=== PATIENT | female | born 1990 | race Caucasian/White ===

== ENCOUNTER 2019-04-29 17:59 | Emergency (ER) | payer SELFPAY ==
[~2019-04-29] VITALS: Ht 152.4 cm; Wt 47.0 kg
--- NOTE | 2019-04-29 18:28 | PHYS DOC ---
Past History Past Medical History: No Pertinent History Adult General Chief Complaint Chief Complaint: MECHANICAL FALL HPI HPI Patient is a 28-year-old female presents to the emergency department for evaluation of neck pain. She states she was laying on her back on the floor, and getting her daughter arrived on her bent knees. She states her daughter started to fall forward, over the patient's head, and the patient states that she tried to rotate her body so that the child would not fall and harm herself, and in doing so, she banged her head and neck, which were flexed forward while she was lying supine, onto the floor, and is having some pain to movement of her neck. The pain is more diffuse and left paraspinal than midline. She denies any numbness, weakness, headache, or loss of consciousness. There are no alleviating or exacerbating factors to her symptoms otherwise. Review of Systems Review of Systems Constitutional: Denies fever or chills [] Eyes: Denies change in visual acuity, redness, or eye pain [] : Denies dysuria or hematuria . Denies . Menstrual cycle is due to start in 3 days.[] Musculoskeletal: Denies back pain or joint pain [] Neurologic: Denies headache, focal weakness or sensory changes [] Current Medications Current Medications Current Medications Medications (Trade) Dose Ordered Sig/Isaias Start Time Stop Time Status Last Admin Dose Admin Ibuprofen (Motrin) 600 mg 1X ONCE 04/29/19 18:30 04/29/19 18:31 UNV Physical Exam Physical Exam PHYSICAL EXAM: CONSTITUTIONAL: Well developed, well nourished HEAD: normocephalic, atraumatic EENT: PERRL, EOMI. Conjunctivae normal color, sclerae non-icteric; moist mucous membranes. NECK: There is mild tenderness to palpation diffusely in the cervical spine, mostly in the left paraspinal and trapezius muscles. There is no definite bony tenderness to palpation. Flexion and extension of the cervical spine are somewhat limited by pain, rotation bilaterally is intact to about 80% of full. LUNGS: Lungs CTA, breathing even and unlabored. Normal air movement. HEART: Regular rate and rhythm, no murmur CHEST: No deformity; non-tender ABDOMEN: The abdomen is soft, and non-tender, no masses or bruits. EXTREM: Normal ROM; no deformity, no calf tenderness. Normal pulses palpable in all extremities. There is no pedal edema. SKIN: No rash; no diaphoresis NEURO: Alert; normal speech and cognition; CN's grossly intact; strength grossly intact without focal deficit. BACK: No CVA TTP.There is no bony tenderness to palpation of the thoracic or lumbar spine. EKG EKG [] Radiology/Procedures Radiology/Procedures PROCEDURE: CERVICAL SPINE 2-3V Cervical spine 3 views. HISTORY: Fall, pain 3 views were taken of the cervical spine. There is straightening of the normal cervical lordosis. Disc spaces are normal in height. An acute fracture is not identified. IMPRESSION: 1. No acute fracture noted in the cervical spine.[] Course & Med Decision Making Course & Med Decision Making Pertinent Imaging studies reviewed. (See chart for details) []Patient remains stable. I discussed test results, the need for close follow- up, and return precautions. Dragon Disclaimer Dragon Disclaimer This electronic medical record was generated, in whole or in part, using a voice recognition dictation system. Departure Departure: Impression: Primary Impression: Cervical strain Disposition: HOME, SELF-CARE Condition: STABLE Referrals: PCP,NO (PCP) Patient Instructions: Cervical Sprain Additional Instructions: Ibuprofen 400-600 mg every 6 hours may help improve your symptoms. Applying a heating pad to the affected area may help improve your symptoms. The prescribed medications may cause drowsiness-use caution while taking. Scripts Cyclobenzaprine Hcl (CYCLOBENZAPRINE HCL) 10 Mg Tablet 1 TAB PO TID PRN for PAIN, #20 TAB Prov: JACKI GILMORE MD 04/29/19 JACKI GILMORE MD Apr 29, 2019 18:28
[2019-04-29] MEDS ORDERED: IBUPROFEN 600 MG TABLET. PO ONE (18:30)
[2019-04-29 19:03] VITALS: BP 120/76
--- NOTE | 2019-04-29 19:08 | RAD ---
Cervical spine 3 views. HISTORY: Fall, pain 3 views were taken of the cervical spine. There is straightening of the normal cervical lordosis. Disc spaces are normal in height. An acute fracture is not identified. IMPRESSION: 1. No acute fracture noted in the cervical spine. Electronically signed by: Gadiel Ferris MD (04/29/2019 7:05 PM) [id number]
[2019-04-29] MEDS ORDERED: CYCL-331 PO (19:17)
== END 2019-04-29 19:42 | disposition home or self-care (01) ==
LOC: ER 17:59
DX: S16.1XXA Strain of muscle, fascia and tendon at neck level, initial encounter (principal); X50.9XXA Other and unspecified overexertion or strenuous movements or postures, initial encounter; Y93.89 Activity, other specified; Y92.89 Other specified places as the place of occurrence of the external cause; Y99.8 Other external cause status
CPT/HCPCS: 72040; 99283

== ENCOUNTER 2019-11-17 18:27 | Emergency (ER) | payer SELFPAY ==
[~2019-11-17] VITALS: Ht 152.4 cm; Wt 44.8 kg
[~2019-11-17 18:27] MED LIST: CYCL-331 PO
--- NOTE | 2019-11-17 19:14 | PHYS DOC ---
Past History Past Medical History: No Pertinent History, Bipolar Past Medical History anoxeria Past Surgical History: No Surgical History Alcohol Use: None General Adult EDM: Chief Complaint: ANXIETY/PANIC ATTACK HPI: HPI: Patient is a 29 year old F who presents with anxiety that began about 1 month ago. She describes panic attacks where she feels like her arms and lips are numb and her hand "lock up". She states these have been occurring everyday for the p ast month. Before arrival, she went to urgent care for the a panic attack, the doctor told her she needed to see a rf engineer which caused her anxiety to be even worse and she decided to come here. She complains of burping and a sharp pain in the left side of her chest for the past few months. She denies shortness of breath or diaphoresis with the chest pains. She said that she has been taking tums with little relief. Denies suicidal and homicidal ideation. Review of Systems: Review of Systems: Constitutional: Denies fever or chills Eyes: Denies redness or eye pain HENT: Denies nasal congestion or sore throat Respiratory: Denies cough; reports shortness of breath with anxiety Cardiovascular: Denies palpatations; reports sharp chest pain GI: Denies abdominal pain, nausea, or vomiting : Denies dysuria or hematuria Musculoskeletal: Denies back pain or joint pain Integument: Denies rash or skin lesions Neurologic: Denies headache, focal weakness or sensory changes Complete systems were reviewed and found to be within normal limits, except as documented in this note. Heart Score: HEART Score for Chest Pain: HEART Score for Chest Pain Response (Comments) Value History Slighlty/Non-Suspicious 0 ECG Normal 0 Age < 45 0 Risk Factors No Risk Factors 0 Total 0 Risk Factors: Risk Factors: DM, Current or recent (<one month) smoker, HTN, HLP, family history of CAD, obesity. Risk Scores: Score 0 - 3: 2.5% MACE over next 6 weeks - Discharge Home Score 4 - 6: 20.3% MACE over next 6 weeks - Admit for Clinical Observation Score 7 - 10: 72.7% MACE over next 6 weeks - Early Invasive Strategies Allergies: Allergies: Allergies Coded Allergies Type Severity Reaction Last Updated Verified No Known Allergies Allergy Unknown 04/29/19 Yes Physical Exam: PE: Constitutional: Well developed, well nourished. HENT: Normocephalic, atraumatic Eyes: Conjunctiva normal, no discharge Neck: Normal range of motion, supple Lungs & Thorax: No respiratory distress, equal chest rise and fall, tachycardic on exam. Abdomen: Soft, no tenderness Skin: Warm, dry, no erythema, no rash Back: No tenderness, no CVA tenderness Extremities: No tenderness, no edema Neurologic: Alert and oriented X 3, no focal deficits noted Psychologic: Affect normal, judgment normal Current Patient Data: Vital Signs: Vital Signs Date Time Temp Pulse Resp B/P (MAP) Pulse Ox O2 Delivery O2 Flow Rate FiO2 11/17/19 18:38 99.0 120 16 143/95 (111) 100 EKG: EKG: @19:54 Normal sinus rhythm with HR of [address] elevations. QRS 94 ms. QT 385 ms. QTc 465 ms Radiology/Procedures: Radiology/Procedures: [] Course & Med Decision Making: Course & Med Decision Making Pertinent Labs and Imaging studies reviewed. (See chart for details) [] Dragon Disclaimer: Dragon Disclaimer: This electronic medical record was generated, in whole or in part, using a voice recognition dictation system. Departure Departure: Impression: Primary Impression: Anxiety Additional Impression: Gastritis Qualified Codes: K29.00 - Acute gastritis without bleeding Disposition: HOME/RESIDENCE PRIOR TO ADM Condition: STABLE Referrals: PCP,SURY (PCP) GURWINDER VELAZQUEZ MD Patient Instructions: Anxiety and Panic Attacks, Vutg-[id number], Gastritis, Adult , [id number] Additional Instructions: Please use previously purchased antacid medication. Call the [facility] (see attached flyer) Justification of Admission: Justification of Admission: Justification of Admission Dx: N/A LAINE LOWE DO Nov 17, 2019 19:14
--- NOTE | 2019-11-17 20:34 | RAD ---
CHEST PA LATERAL History: Reason: left chest pain / Spl. Instructions: / History: Comparison: None. Findings: No consolidation or pleural effusion. Normal heart size. No pneumothorax. Impression: 1. No acute cardiopulmonary process. Electronically signed by: Tiburcio Martinez DO (11/17/2019 8:31 PM) [facility]
[2019-11-17 21:00] VITALS: BP 116/86
--- NOTE | 2019-11-18 07:38 | EKG ---
[address] [address] Test Date: 2019-11-17 Test Time: 19:54:32 Pat Name: KARI WALTON Department: Room: Gender: F Student Services Advisor: PURNIMA : 1990 Requested By: LAINE LOWE Order Number: [id number] Reading MD: Measurements Intervals [place] Rate: 100 P: 40 MO: 116 QRS: 18 QRSD: 94 T: 34 QT: 358 QTc: 465 Interpretive Statements SINUS RHYTHM INCOMPLETE RIGHT BUNDLE BRANCH BLOCK OTHERWISE NORMAL ECG RI6.02 No previous ECG available for comparison
== END 2019-11-17 21:25 | disposition home or self-care (01) ==
LOC: ER 18:27
DX: F41.9 Anxiety disorder, unspecified (principal); K29.70 Gastritis, unspecified, without bleeding
CPT/HCPCS: 71046; 93005; 99285-25

== ENCOUNTER → 2020-07-13 | Outpatient (CLI) | payer BC ==
--- NOTE | 2020-07-13 11:54 | RAD ---
INDICATION: Reason: IRREGULAR MENSES / Spl. Instructions: / History: COMPARISON: None. TECHNIQUE: Grayscale and color ultrasound images uterus and adnexa. FINDINGS: Uterus: 81 x 57 x 35 mm. Endometrial stripe is 5 mm Right Ovary: 36 x 22 x 17 mm. Left Ovary: 43 x 33 x 22 mm. Vascular flow identified to bilateral ovaries. Small free fluid IMPRESSION: * Vascular flow seen to the ovaries. * Uterus is unremarkable appearance. Electronically signed by: Merlin Solomon MD (07/13/2020 11:52 AM) [id number]
== END ==
LOC: US 09:54
PROVIDERS: ATTEND Obstetrics & Gynecology
DX: N92.4 Excessive bleeding in the premenopausal period (principal); N92.6 Irregular menstruation, unspecified
CPT/HCPCS: 76856

== ENCOUNTER 2020-12-30 09:31 | Emergency (ER) | payer BC ==
[~2020-12-30] VITALS: Ht 152.4 cm; Wt 44.8 kg
[~2020-12-30 09:31] MED LIST changes: -CYCL-331 PO; +CYCL10TA19 PO
[2020-12-30 09:48] VITALS: BP 136/71
--- NOTE | 2020-12-30 10:05 | PHYS DOC ---
Past History Past Medical History: Bipolar Past Surgical History: No Surgical History Smoking: Non-smoker Alcohol Use: None Drug Use: None General Adult EDM: Chief Complaint: ABDOMINAL PAIN IN HPI: HPI: 30-year-old female presents with right lower quadrant abdominal pain. The patient is about 6 weeks . She has had episodes of right pelvic pain 5 different times yesterday and at least once this morning. She talked with her brick pitcher and there was concerned that she has not had an ultrasound yet and this could be an extrauterine . Patient is not having any vaginal spotting or bleeding. 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 She denies fever or chills. She has no other complaints this time. Review of Systems: Review of Systems: Constitutional: Denies fever or chills Eyes: Denies change in visual acuity HENT: Denies nasal congestion or sore throat Respiratory: Denies cough or shortness of breath Cardiovascular: Denies chest pain or edema GI: Right lower quadrant abdominal pain. Denies nausea, vomiting, bloody stools or diarrhea : Denies dysuria Musculoskeletal: Denies back pain or joint pain Integument: Denies rash Neurologic: Denies headache, focal weakness or sensory changes Endocrine: Denies polyuria or polydipsia Lymphatic: Denies swollen glands Psychiatric: anxiety Allergies: Allergies: Allergies Coded Allergies Type Severity Reaction Last Updated Verified No Known Allergies Allergy Unknown 04/29/19 Yes Physical Exam: PE: Constitutional: Well developed, well nourished, no acute distress, non-toxic appearance. [] HENT: Normocephalic, atraumatic, bilateral external ears normal, oropharynx moist, no oral exudates, nose normal. [] Eyes: PERRLA, EOMI, conjunctiva normal, no discharge. [] Neck: Normal range of motion, no tenderness, supple, no stridor. [] Cardiovascular: Heart rate regular rhythm, no murmur [] Lungs & Thorax: Bilateral breath sounds clear to auscultation [] Abdomen: Bowel sounds normal, soft, no tenderness, no masses, no pulsatile masses. [] Skin: Warm, dry, no erythema, no rash. [] Back: No tenderness, no CVA tenderness. [] Extremities: No tenderness, no cyanosis, no clubbing, ROM intact, no edema. [] Neurologic: Alert and oriented X 3, normal motor function, normal sensory function, no focal deficits noted. [] Psychologic: Affect normal, judgement normal, mood normal. [] Current Patient Data: Vital Signs: Vital Signs Date Time Temp Pulse Resp B/P (MAP) Pulse Ox O2 Delivery O2 Flow Rate FiO2 12/30/20 09:48 97.9 101 20 136/71 (92) 100 EKG: EKG: [] Radiology/Procedures: Radiology/Procedures: [] Impressions: EXAM: Obstetric sonogram. HISTORY: Right lower quadrant pain. TECHNIQUE: Transvaginal sonographic imaging of the pelvis was performed. COMPARISON: None. FINDINGS: The uterus measures 9.5 x 7.6 x 5.9 cm. There is a single intrauterine gestational sac with yolk sac and pole. The sac is normal in configuration and location. The crown-rump length is 6 mm, corresponding with a gestational age of 6 weeks and 3 days and due date is 08/22/2021. There is a normal heart rate of 123 bpm. The ovaries are normal in size and demonstrate normal blood flow. There is no pelvic free fluid. IMPRESSION: 1. Single imaging fetus with normal heart rate and gestational age based on ultrasound measurements of 6 weeks and 3 days. 2. No acute sonographic finding. Electronically signed by: Radha Herrera MD (12/30/2020 11:59 AM) [id number] DICTATED AND SIGNED BY: RADHA HERRERA MD DATE: 12/30/20 1158 CC: SHIRA ALFARO DO; ANA M MACHADO ~MTH0 0 Heart Score: C/O Chest Pain: N/A Risk Factors: Risk Factors: DM, Current or recent (<one month) smoker, HTN, HLP, family history of CAD, obesity. Risk Scores: Score 0 - 3: 2.5% MACE over next 6 weeks - Discharge Home Score 4 - 6: 20.3% MACE over next 6 weeks - Admit for Clinical Observation Score 7 - 10: 72.7% MACE over next 6 weeks - Early Invasive Strategies Course & Med Decision Making: Course & Med Decision Making Pertinent Labs and Imaging studies reviewed. (See chart for details) The patient's labs are unremarkable. Her ultrasound does show a live intrauterine with heartbeat. See official read for more details. The patient is greatly reassured. She is stable for discharge at this time. There is a delay around the urinalysis so we will call the patient with the results if necessary. [] Feliberto Disclaimer: Feliberto Disclaimer: This electronic medical record was generated, in whole or in part, using a voice recognition dictation system. Departure Departure: Impression: Primary Impression: Abdominal pain affecting Disposition: HOME / SELF CARE / HOMELESS Condition: STABLE Referrals: ANA M MACHADO (PCP) Patient Instructions: - First Trimester, [id number] Additional Instructions: hCG level is 42,254 SHIRA ALFARO DO Dec 30, 2020 10:05
[2020-12-30 10:40] LABS: BASO % 1 % (0-3); EOS % 0 % (0-3); HEMATOCRIT 40.4 % (36.0-47.0); HEMOGLOBIN 13.5 g/dL (12.0-15.5); LYMPH # 1.3 x10^3/uL (1.0-4.8); LYMPH % 23 % (24-48); MEAN CORPUSCULAR HEMOGLOBIN 29 pg (25-35); MEAN CORPUSCULAR HGB CONC 33 g/dL (31-37); MEAN CORPUSCULAR VOLUME 87 fL (79-100); MONO # 0.3 x10^3/uL (0.0-1.1); MONO % 5 % (0-9); NEUT # 4.2 x10^3uL (1.8-7.7); NEUT % 71 % (31-73); PLATELET COUNT 238 x10^3/uL (140-400); RED BLOOD COUNT 4.67 x10^6/uL (3.50-5.40); RED CELL DISTRIBUTION WIDTH 13.3 % (11.5-14.5); WHITE BLOOD COUNT 5.9 x10^3/uL (4.0-11.0)
[2020-12-30 10:50] LABS: CALCIUM 8.8 mg/dL (8.5-10.1); CREATININE 0.6 mg/dL (0.6-1.0); GFR 118.2; POTASSIUM 3.5 mmol/L (3.5-5.1)
[2020-12-30 10:55] LABS: ALBUMIN 4.1 g/dL (3.4-5.0); ALBUMIN/GLOBULIN RATIO 1.1 (1.0-1.7); TOTAL BILIRUBIN 0.8 mg/dL (0.2-1.0); TOTAL PROTEIN 7.9 g/dL (6.4-8.2)
--- NOTE | 2020-12-30 12:02 | RAD ---
EXAM: Obstetric sonogram. HISTORY: Right lower quadrant pain. TECHNIQUE: Transvaginal sonographic imaging of the pelvis was performed. COMPARISON: None. FINDINGS: The uterus measures 9.5 x 7.6 x 5.9 cm. There is a single intrauterine gestational sac with yolk sac and pole. The sac is normal in configuration and location. The crown-rump lengt h is 6 mm, corresponding with a gestational age of 6 weeks and 3 days and due date is 08/22/2021. Ther e is a normal heart rate of 123 bpm. The ovaries are normal in size and demonstrate normal bloo d flow. There is no pelvic free fluid. IMPRESSION: 1. Single imaging fetus with normal heart rate and gestational age based on ultrasound measurements o f 6 weeks and 3 days. 2. No acute sonographic finding. Electronically signed by: Radha Herrera MD (12/30/2020 11:59 AM) [id number]
[2020-12-30 12:30] LABS: BACTERIA,URINE FEW /HPF (0-FEW); BILIRUBIN,URINE NEG (NEG); CLARITY,URINE HAZY; COLOR,URINE STRAW; GLUCOSE,URINE NEG (NEG); NITRITE,URINE NEG (NEG); RBC,URINE 0 /HPF (0-2); SQUAMOUS EPITHELIAL CELL,UR FEW /LPF; UROBILINOGEN,URINE 0.2 mg/dL (0.2 mg/dL)
== END 2020-12-30 12:20 | disposition home or self-care (01) ==
LOC: ER 09:31
DX: O26.891 Other specified pregnancy related conditions, first trimester (principal); R10.31 Right lower quadrant pain; Z3A.01 Less than 8 weeks gestation of pregnancy
CPT/HCPCS: 36415; 76801; 76817; 80053; 81001; 84702; 85025; 87086; 99284-25